=== PATIENT | female | born 1975 | race American Indian/Alaskan Native ===

== ENCOUNTER 2017-08-30 15:49 | Emergency (ER) | payer SELFPAY ==
[2017-08-30 16:01] VITALS: BP 136/86
--- NOTE | 2017-08-30 18:09 | XRay Report ---
FINAL REPORT EXAM: XR SPINE LUMBOSACRAL 2-3V HISTORY: LOWER BACK PAIN RADIATES TO LEFT LEG. TECHNIQUE: Lumbar spine 2 views PRIORS: None. FINDINGS: Vertebral bodies demonstrate normal height and alignment. The disc spaces are within normal limits. There is no evidence of spondylolisthesis. Transverse and spinous processes are intact SI joints are unremarkable. IMPRESSION: Negative lumbar spine series
--- NOTE | 2017-08-30 18:22 | Emergency Department Report ---
ED Back Pain/Injury HPI - General Chief Complaint: Extremity Injury, Lower Stated Complaint: POSSIBLE PINCHED NERVE Time Seen by Provider: 08/30/17 18:18 Source: patient Mode of arrival: Ambulatory Limitations: No Limitations - History of Present Illness MD Complaint: back pain -: Sudden, days(s) (1 day) Similar Symptoms Previously: No Radiation: buttocks, left leg Severity: severe Severity scale (0 -10): 10 Quality: stabbing Consistency: constant Improves With: other (rest) Worsens With: walking Context: unknown Associated Symptoms: denies other symptoms. denies: confusion, weakness, chest pain, numbness, difficulty walking, cough, difficulty urinating, diaphoresis, incontinence, fever/chills, constipation, headaches, abdominal pain, loss of appetite, malaise, nausea/vomiting, rash, seizure, shortness of breath, syncope - Related Data Previous Rx's Medication Instructions Recorded Last Taken Type Acetaminophen/Codeine [Tylenol 1 tab PO Q4HR PRN #15 tablet 08/30/17 Unknown Rx /Codeine # 3 tab] Cyclobenzaprine [Flexeril] 10 mg PO BID PRN #15 tablet 08/30/17 Unknown Rx Ibuprofen 800 mg PO Q8HR PRN #20 tablet 08/30/17 Unknown Rx Allergies Allergy/AdvReac Type Severity Reaction Status Date / Time Penicillins Allergy Anaphylaxis Verified 08/30/17 16:18 sulfamethoxazole Allergy Hives Verified 08/30/17 16:18 [From Bactrim] trimethoprim [From Bactrim] Allergy Hives Verified 08/30/17 16:18 ED Review of Systems ROS: Stated complaint: POSSIBLE PINCHED NERVE Other details as noted in HPI Comment: All other systems reviewed and negative Constitutional: denies: chills, fever Eyes: denies: eye pain, eye discharge, vision change ENT: denies: ear pain, throat pain Respiratory: denies: cough, shortness of breath, wheezing Cardiovascular: denies: chest pain, palpitations Endocrine: no symptoms reported Gastrointestinal: denies: abdominal pain, nausea, diarrhea Genitourinary: denies: urgency, dysuria, discharge Musculoskeletal: back pain. denies: joint swelling, arthralgia Skin: denies: rash, lesions Neurological: denies: headache, weakness, paresthesias Psychiatric: denies: anxiety, depression Hematological/Lymphatic: denies: easy bleeding, easy bruising ED Past Medical Hx - Past Medical History Previous Medical History?: Yes Hx Diabetes: Yes Additional medical history: diabetic neuropathy - Surgical History Past Surgical History?: Yes Additional Surgical History: tubal 1998 - Family History Family history: hypertension - Social History Smoking Status: Never Smoker Substance Use Type: Alcohol - Medications Home Medications: Home Medications Medication Instructions Recorded Confirmed Last Taken Type Acetaminophen/Codeine [Tylenol 1 tab PO Q4HR PRN #15 tablet 08/30/17 Unknown Rx /Codeine # 3 tab] Cyclobenzaprine [Flexeril] 10 mg PO BID PRN #15 tablet 08/30/17 Unknown Rx Ibuprofen 800 mg PO Q8HR PRN #20 tablet 08/30/17 Unknown Rx ED Physical Exam - General Limitations: No Limitations General appearance: alert, in no apparent distress - Head Head exam: Present: atraumatic, normocephalic - Eye Eye exam: Present: normal appearance - ENT ENT exam: Present: mucous membranes moist - Neck Neck exam: Present: normal inspection - Respiratory Respiratory exam: Present: normal lung sounds bilaterally. Absent: respiratory distress - Cardiovascular Cardiovascular Exam: Present: regular rate, normal rhythm. Absent: systolic murmur, diastolic murmur, rubs, gallop - GI/Abdominal GI/Abdominal exam: Present: soft, normal bowel sounds - Extremities Exam Extremities exam: Present: normal inspection - Back Exam Back exam: Present: normal inspection, tenderness (over SI joint), muscle spasm - Neurological Exam Neurological exam: Present: alert, oriented X3 - Psychiatric Psychiatric exam: Present: normal affect, normal mood - Skin Skin exam: Present: warm, dry, intact, normal color. Absent: rash ED Course Vital Signs 08/30/17 15:57 Temperature 98.8 F Pulse Rate 80 Blood Pressure 136/86 O2 Sat by Pulse 100 Oximetry ED Medical Decision Making - Radiology Data Radiology results: report reviewed interpreted by me: Acute process on L-spine - Medical Decision Making SHEENT is a 42-year-old female with low back pain and sciatic symptoms. Patient is stable for discharge on results given to patient patient will be discharged home - Differential Diagnosis back pain. Sciatic syndrome. Lumbar radiculopathy Critical care attestation.: If time is entered above; I have spent that time in minutes in the direct care of this critically ill patient, excluding procedure time. ED Disposition Clinical Impression: Back pain, Lumbar strain, Sciatica Disposition: TO HOME OR SELFCARE Is pt being admited?: No Does the pt Need Aspirin: No Condition: Stable Instructions: Lumbar Radiculopathy (ED), Muscle Strain (ED), Sciatica (ED) Additional Instructions: Patient to follow up with primary care in 3-5 days. Patient to follow-up with orthopedist in 2-4 days. Patient to return to ER if condition worsens. Patient 's take meds as directed. Patient to rest. Patient to take Tylenol or ibuprofen when necessary for pain. Patient to increase water. Prescriptions: Acetaminophen/Codeine [Tylenol /Codeine # 3 tab] 1 tab PO Q4HR PRN #15 tablet PRN Reason: Pain, Moderate (4-6) Cyclobenzaprine [Flexeril] 10 mg PO BID PRN #15 tablet PRN Reason: Muscle Spasm Ibuprofen 800 mg PO Q8HR PRN #20 tablet PRN Reason: Pain Referrals: PRIMARY CARE, [Primary Care Provider] - 3-5 Days Time of Disposition: 18:30
== END 2017-08-30 19:08 | disposition home or self-care (01) ==
LOC: ED 15:49
DX: M54.9 Dorsalgia, unspecified (principal); M54.42 Lumbago with sciatica, left side; E11.9 Type 2 diabetes mellitus without complications; Z88.0 Allergy status to penicillin; Z98.51 Tubal ligation status; Z88.1 Allergy status to other antibiotic agents; S39.012A Strain of muscle, fascia and tendon of lower back, initial encounter; X58.XXXA Exposure to other specified factors, initial encounter; Y93.89 Activity, other specified; Y92.89 Other specified places as the place of occurrence of the external cause; Y99.8 Other external cause status
CPT/HCPCS: 72100; 99283